=== PATIENT | female | born 1965 | race Caucasian/White ===

== ENCOUNTER 2017-01-01 15:51 | Observation (INO) | payer MEDICARE, OTHER ==
--- NOTE | ~2017-01-01 | HP ---
History And Physical [place] [address] [facility] [place] [address] NAME: ALEXANDREA JAUREGUI : 63 STATUS : ADM Vianey PAT#: [id number] AGE: 51 ADM/REG DATE : 01/01/17 MR#: [id number] REPORT SERV DATE: 01/02/17 DICTATED BY: NATALIA PEREYRA DATE: 01/02/17 REPORT STATUS : Draft TRANSCRIBED BY: MODL DATE: 01/02/17 DATE OF ADMISSION: 01/01/2017 PRIMARY CARE PROVIDER: Trudy meng EvaristoDr. Molly pedro. CHIEF COMPLAINT: Chest pain. HISTORY OF PRESENT ILLNESS: This is a 51-year-old female with history of saddle pulmonary embolus and DVTs in 06/2016, requiring tPA and thrombectomy, who states a several-month history of midsternal chest pain. She states there is some radiation to the left shoulder and has been occurring intermittently over the last several months. The episodes can last several minutes, and there is no relation to exertion nor is it pleuritic. She has had no increased shortness of breath nor has she had any symptoms mimicking when she had her PE last fall. She is on Eliquis for anticoagulation and states she sometimes forgets a dose and has perhaps forgotten three to four doses over the last several weeks. Her D-dimer in the emergency department was 0.47. She states her chest pains are sometimes worse with eating and it recurred yesterday afternoon, where it was fairly intense to the left side of her chest with radiation to her left shoulder, and her parents were concerned and brought her to the emergency department around 3:30 p.m. She has had a few minor episodes of chest pain through the night. Again, she denies any acute shortness of breath. She does have some chronic dyspnea on exertion, for instance when she walks long distances. The patient denies any recent fever, cough, or chills. States occasional left lower extremity edema, which is chronic. Denies any orthopnea or PND. PAST MEDICAL HISTORY: 1. Hospitalization for saddle PE in 06/2016, status post tPA and thrombectomy, on Eliquis for anticoagulation. 2. Anxiety and depression with reported suicide attempt last fall. 3. Chronic pain. 4. Irritable bowel syndrome, constipation. 5. Kienbock disease. 6. GERD. 7. Fibromyalgia. PAST SURGICAL HISTORY: 1. Cholecystectomy. 2. Appendectomy. 3. Hysterectomy. 4. Laparoscopic surgery for small-bowel obstruction and adhesions. 5. Left hand surgery. 6. Sinus surgery. 7. Left fallopian tube and ovary removed. HOME MEDICATIONS: Eliquis 5 mg p.o. b.i.d., vitamin C 500 daily, aspirin 81 daily, Wellbutrin XL 150 daily, calcium carbonate 600 daily, vitamin D 1000 units daily, Flexeril History And Physical [address] [address] NAME: ALEXANDREA JAUREGUI : 63 STATUS : ADM Vianey PAT#: [id number] AGE: 51 ADM/REG DATE : 01/01/17 MR#: [id number] REPORT SERV DATE: 01/02/17 DICTATED BY: NATALIA PEREYRA DATE: 01/02/17 REPORT STATUS : Draft TRANSCRIBED BY: JADEN DATE: 01/02/17 10 mg t.i.d. p.r.n. spasms, Valium 5 mg p.r.n. anxiety b.i.d., Duragesic patch 25 mcg/hour one patch q.72 hours, Neurontin 800 mg t.i.d., magnesium oxide 400 b.i.d., Mobic 15 daily, multivitamin daily, Percocet 10/325 one tab q.6 p.r.n. pain, promethazine suppository 12.5 mg p.r.n. nausea and vomiting, Zantac 150 mg p.o. b.i.d., vitamin E 400 units p.o. daily, vitamin A one tab daily. ALLERGIES: PENICILLIN CAUSES RASH AND ITCHING. MORPHINE CAUSES RASH. CODEINE CAUSES ITCHING. VALPROIC ACID, ITCHING. LAMICTAL, ITCHING. REGLAN, PANIC ATTACKS. LATUDA, ITCHING. LATEX, ITCHING. ZOFRAN, RESTLESSNESS. SOCIAL HISTORY: The patient is and lives with her parents currently. She is using the vapor cigarettes and is slowly decreasing the tobacco with attempts to quit. Denies alcohol or illicit drug use. FAMILY HISTORY: Negative for premature cardiovascular disease among her first-degree relatives. REVIEW OF SYSTEMS: The patient states she has not had a BM in three days and generally takes MiraLax for this. All other review of systems is negative, except as indicated above. PHYSICAL EXAMINATION: VITAL SIGNS: Blood pressure 107/61, heart rate 70, temperature 97.7, pulse oximetry 95% on room air. BMI 27.9. GENERAL: The patient is sleepy, but arousable. No acute distress. Cooperative. HEENT: Anicteric. Normal EOM. Head, normocephalic. PERRLA, no xanthelasma. NECK: Supple. No JVD. Carotids normal without bruits. LUNGS: Clear to auscultation bilaterally anterior and posterior. Respirations even and unlabored. CARDIAC: S1, S2. Regular rate and rhythm. No murmurs, rubs, or gallops. No chest wall tenderness. ABDOMEN: Normal bowel sounds. Soft and nontender to palpation. No masses or organomegaly. EXTREMITIES: No edema to the bilateral lower extremities. The patient is wearing HOLLY hose. Normal distal pulses. There is calf tenderness bilaterally to palpation, but also on the anterior leg. SKIN: Warm and dry. Normal turgor. No pallor or cyanosis. MUSCULOSKELETAL: Moving all extremities x4. Normal muscle strength. NEURO/PSYCH: Alert and oriented with appropriate affect. LABORATORY DATA: White blood count 5.5, hemoglobin 12.2, hematocrit 36.2. INR 1.2 with a PT of 15.2. D-dimer of 0.47. Sodium 139, potassium 4.5, BUN 9, creatinine 0.8. Troponin less than 0.02 x2. Chest x-ray shows some mild cardiomegaly, but no acute cardiopulmonary processes. EKGs, interpreted by myself, indicate normal sinus rhythm on three separate EKGs with poor R-wave progression through the anteroseptal leads. ASSESSMENT AND PLAN: 1. Midsternal chest pain with atypical features in this 51-year-old female with History And Physical [address] [address] NAME: ALEXANDREA JAUREGUI : 63 STATUS : ADM Vianey PAT#: [id number] AGE: 51 ADM/REG DATE : 01/01/17 MR#: [id number] REPORT SERV DATE: 01/02/17 DICTATED BY: NATALIA PEREYRA DATE: 01/02/17 REPORT STATUS : Draft TRANSCRIBED BY: JADEN DATE: 01/02/17 cardiovascular risk factors of tobacco as well as prior pulmonary embolism. She has been observed overnight in the chest pain observation unit and is negative for acute coronary syndrome. The patient has been fairly compliant with her Eliquis, and her elevated PT and INR seem to support this. Her D-dimer is normal, and there was no hypoxia or tachypnea on exam. Recommend proceeding with a nuclear stress test today to further differentiate any cardiac ischemia. If this is low risk, we will plan to discharge her home today with followup with her primary care physician in the next one to two weeks. 2. History of pulmonary embolism and deep vein thrombosis in June of last year. See discussion above. I have urged the patient to continue compliance with her Eliquis to set reminders on her phone or watch. 3. Chronic pain and fibromyalgia. This may also be contributing to the patient's symptoms. The patient wears a fentanyl patch, we will continue. 4. Gastroesophageal reflux disease. I have some suspicion of this if the stress testing is low risk given that the chest pain seems to be worse with food. I will plan to write a prescription for Protonix on discharge and hold the Zantac for now and see if there is any relief. 5. Tobacco. I have congratulated the patient on decreasing her tobacco intake, and I have counseled her on complete cessation. BLESSING/JADEN Natalia Pereyra NP / [id number] CC: Elizabeth Prieto, MSN, CONTROL SYSTEM MANAGER-BC
[~2017-01-01 15:51] MED LIST: ASAB PO; DURA12 TOP; EFFEXOR PO; ELIQUIS 5 MG TAB5 MG PO; FLEX PO; IMITREX25 PO; KLONO5 PO; MAGOX4 PO; MOBIC15 MG PO; NEUR800 PO; NORCO1 TA1 PO; NORCO1 TA2 PO; PCET PO; PERCOCET1 TA4 PO; PR25 PO; PR25R PR; PYR200 PO; SINEQUAN 50 MG50 MG PO; ULTRAM50 PO; V5 PO
[2017-01-01 16:09] LABS: BASOPHILS 0.4 %; BASOPHILS ABSOLUTE 0.02 10/3/uL (0.0-0.16); EOSINOPHILS 3.6 %; HEMATOCRIT 36.2 % (36.0-48.0); HEMOGLOBIN 12.2 g/dL (12.0-16.0); IMMATURE GRANULOCYTES 0.2 %; IMMATURE GRANULOCYTES ABSOLUTE 0.01 10/3/uL (0.0-0.11); LYMPHOCYTES 41.4 %; LYMPHOCYTES ABSOLUTE 2.27 10/3/uL (0.67-4.30); MEAN CORPUS HGB CONC 33.7 g/dL (32.0-36.0); MEAN CORPUSCULAR HEMOGLOB 30.5 pg (26.0-34.0); MEAN CORPUSCULAR VOLUME 90.5 fL (80-100); MEAN PLATELET VOLUME 9.7 fL (9.2-13.0); MONOCYTES 6.9 %; MONOCYTES ABSOLUTE 0.38 10/3/uL (0.21-1.20); NEUTROPHILS 47.5 %; PLATELET COUNT 276 10/3/uL (150-400); RBC DISTRIBUTION WIDTH 12.6 % (12.0-16.0); WHITE BLOOD CELLS 5.5 10/3/uL (4.5-10.5)
[2017-01-01 16:10] LABS: MANUAL DIFF NO %
[2017-01-01 16:15] LABS: INTERNATIONAL NORMAL RATI 1.2 UNITS (-); PARTIAL THROMBO TIME 34.4 SEC (22.5-37.2)
[2017-01-01 16:17] LABS: PROTIME (NOT ORD) 15.2 SEC (12.0-14.5)
[2017-01-01 16:25] LABS: BUN (BLOOD UREA NITROGEN) 9 MG/DL (6-23); CALCIUM, SERUM 8.9 MG/DL (8.5-10.4); CHEST PAIN PROFILE TAT 0 Hrs 22 Mins; CHLORIDE, SERUM 107 MMOL/L (96-112); CO2 (CARBON DIOXIDE) 28 MMOL/L (24-34); CREATININE 0.88 MG/DL (0.55-1.02); GFR AFRICAN AMERICAN 88 ML/MIN (>=60); GFR NON AFRICAN AMERICAN 76 ML/MIN (>=60); GLUCOSE, SERUM 106 MG/DL (60-99); SODIUM, SERUM 139 MMOL/L (135-148); TROPONIN I <0.02 NG/ML (<0.05)
[2017-01-01 16:26] LABS: POTASSIUM, SERUM 4.5 MMOL/L (3.5-5.3)
[2017-01-01 17:16] LABS: D-DIMER QUANTITATIVE 0.47 ug/mLFEU (< 0.50)
[2017-01-01] MEDS ORDERED: ELIQUIS 5 MG TAB5 MG PO (18:24)
[2017-01-01] MEDS ORDERED: PERCOCET 10/3251 TAB PO (18:24)
[2017-01-01] MEDS ORDERED: WELLXL150 PO (18:26)
[2017-01-01] MEDS ORDERED: NEUR800 PO (18:26)
[2017-01-01] MEDS ORDERED: V5 PO (18:27)
[2017-01-01] MEDS ORDERED: MOBIC15 MG PO (18:28)
[2017-01-01] MEDS ORDERED: FLEX PO (18:28)
[2017-01-01] MEDS ORDERED: DURA25 TOP (18:29)
[2017-01-01] MEDS ORDERED: HALF81 PO (18:30)
[2017-01-01] MEDS ORDERED: ZANTAC150 MG PO (18:30)
[2017-01-01] MEDS ORDERED: MULTIVITAMI1 PO (18:32)
[2017-01-01] MEDS ORDERED: PHENADOZ12.5 MG PR (18:32)
[2017-01-01] MEDS ORDERED: CALTRAT600 PO (18:33)
[2017-01-01] MEDS ORDERED: VITC500 PO (18:36)
[2017-01-01] MEDS ORDERED: MAGOX4 PO (18:36)
[2017-01-01] MEDS ORDERED: VITAMIN D1000 UNI1 PO (18:37)
[2017-01-01] MEDS ORDERED: VITE PO (18:38)
[2017-01-01] MEDS ORDERED: VITAMIN A PO (18:38)
[2017-01-02] MEDS ORDERED: PROTONIX PO (13:26)
== END 2017-01-02 14:11 | disposition home or self-care (01) ==
LOC: ER 15:51 → CDU1 19:10
PROVIDERS: Hospitalist
DX: R07.2 Precordial pain (principal); M79.7 Fibromyalgia; G89.29 Other chronic pain; K21.9 Gastro-esophageal reflux disease without esophagitis; F41.9 Anxiety disorder, unspecified; F32.9 Major depressive disorder, single episode, unspecified; M92.219 Osteochondrosis (juvenile) of carpal lunate [Kienbock], unspecified hand; Z90.49 Acquired absence of other specified parts of digestive tract; Z86.711 Personal history of pulmonary embolism; Z86.718 Personal history of other venous thrombosis and embolism; Z90.710 Acquired absence of both cervix and uterus; Z79.899 Other long term (current) drug therapy; Z88.0 Allergy status to penicillin; Z88.5 Allergy status to narcotic agent; Z91.040 Latex allergy status
CPT/HCPCS: 71020; 78452; 80048; 83735; 84484; 85025; 85379; 85610; 85730; 93005; 93017; 99285; A9270-GY; A9502; G0378